=== PATIENT | male | born 1980 | race Caucasian/White ===

== ENCOUNTER → 2023-02-11 10:39 | Outpatient (REF) | payer MEDICARE, OTHER, SELFPAY | LOC: RAD 10:39 | PROVIDERS: ATTENDING PHYSICIAN Podiatrist Foot Surgery | DX: M79.671 Pain in right foot (principal); M79.672 Pain in left foot | CPT/HCPCS: 73630 ==

== ENCOUNTER → 2023-06-07 06:30 | Outpatient (REF) | payer MEDICARE, OTHER, SELFPAY | LOC: MRI 06:30 | PROVIDERS: ATTENDING PHYSICIAN Physician Assistant Surgical; FAMILY PHYSICIAN Family Medicine | DX: M47.817 Spondylosis without myelopathy or radiculopathy, lumbosacral region (principal) | CPT/HCPCS: 72148 ==

== ENCOUNTER → 2024-08-30 13:42 | Outpatient (REF) | payer MEDICARE, OTHER, SELFPAY | LOC: RAD 13:42 | PROVIDERS: ATTENDING PHYSICIAN Physician Assistant Surgical; FAMILY PHYSICIAN Family Medicine | DX: M77.11 Lateral epicondylitis, right elbow (principal); M25.521 Pain in right elbow | CPT/HCPCS: 73080 ==